=== PATIENT | female | born 1990 | race Caucasian/White ===

== ENCOUNTER 2020-03-15 08:32 | Outpatient (CLI) | payer BC ==
[2020-03-15 15:27] LABS: BASOPHILS % (AUTO) 0.8 %; EOSINOPHILS # (AUTO) 0.3 10^3/uL (0.0-0.7); EOSINOPHILS % (AUTO) 5.6 %; HGB - HEMOGLOBIN 11.7 g/dL (12.0-16.0); LYMPHOCYTES # (AUTO) 1.9 10^3/uL (1.5-3.5); MEAN CORPUSCULAR HEMOGLOBIN 28.8 pg (27.0-31.0); MEAN CORPUSCULAR HGB CONC 30.7 g/dL (32.0-36.0); MEAN CORPUSCULAR VOLUME 93.8 fL (81.0-99.0); MEAN PLATELET VOLUME 10.9 fL (7.9-10.8); MONOCYTES # (AUTO) 0.3 10^3/uL (0.0-1.0); MONOCYTES % (AUTO) 6.6 %; NEUTROPHILS # (AUTO) 2.4 10^3/uL (1.5-6.6); NEUTROPHILS % (AUTO) 48.8 %; PLT - PLATELET COUNT 288 10^3/uL (130-450); RED BLOOD COUNT 4.06 10^6/uL (4.20-5.40); RED CELL DISTRIBUTION WIDTH 13.8 % (12.0-15.0)
[2020-03-15 15:38] LABS: ALBUMIN 4.5 g/dL (3.2-5.5); ALBUMIN/GLOBULIN RATIO 1.4 (1.0-2.2); ALKALINE PHOSPHATASE 53 IU/L (42-121); ALT ALANINE AMINOTRANSFERASE < 10 IU/L (10-60); AST ASPARTATE AMINOTRANSFERASE 15 IU/L (10-42); BILIRUBIN,TOTAL 0.3 mg/dL (0.2-1.0); BUN - BLOOD UREA NITROGEN 14 mg/dL (6-20); CALCIUM 9.5 mg/dL (8.5-10.3); CARBON DIOXIDE - CO2 24 mmol/L (21-32); CHLORIDE 108 mmol/L (101-111); CHOL/HDL RATIO 3.4 (<4.4); CHOLESTEROL 199 mg/dL; CREATININE 0.9 mg/dL (0.4-1.0); GLUCOSE 90 mg/dL (70-100); HDL CHOLESTEROL 59 mg/dL; LDL CHOLESTEROL,CALCULATED 115 mg/dL; LDL/HDL RATIO 1.9 (<4.4); SODIUM 139 mmol/L (135-145); TOTAL PROTEIN 7.7 g/dL (6.7-8.2); VLDL CHOLESTEROL 25 mg/dL
[2020-03-15 16:02] LABS: THYROID STIMULATING HORMONE 7.24 uIU/mL (0.34-5.60)
[2020-03-15 16:04] LABS: FREE T3 3.49 pg/mL (2.5-3.9); FREE T4 (FREE THYROXINE) 0.7 ng/dL (0.58-1.64)
[2020-03-15 16:07] LABS: FERRITIN 12.8 ng/mL (11.0-306.8)
[2020-03-15 16:10] LABS: PROLACTIN 27.89 ng/mL
== END 2020-03-15 08:33 | disposition home or self-care (01) ==
LOC: LAB.S 08:32
PROVIDERS: ATTEND Naturopath
DX: E06.3 Autoimmune thyroiditis (principal); E55.9 Vitamin D deficiency, unspecified; G43.009 Migraine without aura, not intractable, without status migrainosus; K90.0 Celiac disease; L80 Vitiligo; N92.6 Irregular menstruation, unspecified; Z71.89 Other specified counseling; Z83.49 Family history of other endocrine, nutritional and metabolic diseases; R79.9 Abnormal finding of blood chemistry, unspecified
CPT/HCPCS: 36415; 80053; 80061; 82306; 82728; 83036; 83721; 84146; 84439; 84443; 84481; 85025; 86376; 86800

== ENCOUNTER 2020-04-13 13:50 | Emergency (ER) | payer BC ==
[2020-04-13 14:35] LABS: BASOPHILS % (AUTO) 0.6 %; EOSINOPHILS # (AUTO) 0.1 10^3/uL (0.0-0.7); EOSINOPHILS % (AUTO) 1.4 %; HGB - HEMOGLOBIN 12.8 g/dL (12.0-16.0); LYMPHOCYTES # (AUTO) 2.2 10^3/uL (1.5-3.5); LYMPHOCYTES % (AUTO) 34.1 %; MEAN CORPUSCULAR HEMOGLOBIN 29.4 pg (27.0-31.0); MEAN CORPUSCULAR HGB CONC 32.2 g/dL (32.0-36.0); MEAN CORPUSCULAR VOLUME 91.3 fL (81.0-99.0); MEAN PLATELET VOLUME 9.6 fL (7.9-10.8); MONOCYTES # (AUTO) 0.4 10^3/uL (0.0-1.0); MONOCYTES % (AUTO) 5.8 %; NEUTROPHILS # (AUTO) 3.7 10^3/uL (1.5-6.6); NEUTROPHILS % (AUTO) 57.8 %; PLT - PLATELET COUNT 338 10^3/uL (130-450); RED BLOOD COUNT 4.36 10^6/uL (4.20-5.40); WHITE BLOOD COUNT 6.3 x10^3/uL (4.8-10.8)
--- NOTE | 2020-04-13 14:42 | ED Physician Documentation ---
History of Present Illness - Stated complaint Stated Complaint: ABD TENDERNESS,FATIGUE, CONSTIPATION - Chief complaint Chief Complaint: Abd Pain - History obtained from History obtained from: Patient - Additonal information Additional information: 30-year-old female presents to the emergency department for evaluation of upper epigastric tenderness for much of the last week with some associated anorexia and nausea. She denies any vomiting. She denies black stools. She does report that sometimes she notices some blood after wiping when she has a bowel movement and thinks that she may have a rectal fissure. She wonders if she may have leg ulcer. She does have a history of celiac disease. However she states it is well managed as she has been gluten-free for nearly 7 years. No fevers, dysuria urgency or frequency. No history of renal stones. No history of gallbladders. Pain is not worse after eating but the nausea prevents her from wanting to eat Review of Systems Constitutional: denies: Fever, Chills Eyes: denies: Loss of vision Ears: reports: Reviewed and negative Nose: reports: Reviewed and negative Throat: reports: Reviewed and negative Cardiac: reports: Reviewed and negative Respiratory: reports: Reviewed and negative GI: reports: Abdominal Pain, Nausea. denies: Abdominal Swelling, Vomiting, Constipation, Diarrhea, Hematemesis, Bloody / black stool : reports: Reviewed and negative Skin: reports: Reviewed and negative Musculoskeletal: reports: Reviewed and negative PD PAST MEDICAL HISTORY - Present Medications Home Medications: Ambulatory Orders Medication Instructions Recorded Confirmed Famotidine [Pepcid] 20 mg PO BID #60 tablet 04/13/20 - Allergies Allergies/Adverse Reactions: Allergies Allergy/AdvReac Type Severity Reaction Status Date / Time No Known Drug Allergies Allergy Verified 04/13/20 14:05 PD ED PE NORMAL - General General: Alert and oriented X 3, No acute distress - HEENT HEENT: Atraumatic, PERRL, EOMI - Neck Neck: Supple, no meningeal sign, No adenopathy - Cardiac Cardiac: RRR, No murmur - Respiratory Respiratory: No respiratory distress, Clear bilaterally - Abdomen Abdomen: Normal bowel sounds, Soft, Non distended. No: Non tender (Mild epigastric tenderness to deep palpation. Negative Antonio's. Negative McBurney's. No CVA or flank tenderness) - Rectal Rectal: Other (Small rectal fissure seen at the 4 o'clock position with the patient in the left lateral recumbent position) - Back Back: No CVA TTP, No spinal TTP - Derm Derm: Normal color, No rash - Extremities Extremities: No deformity Results - Vitals Vitals: Vital Signs - 24 hr 04/13/20 04/13/20 13:59 14:57 Temperature 37.4 C Heart Rate 80 65 Respiratory 18 17 Rate Blood Pressure 122/77 138/78 H O2 Saturation 97 98 Oxygen O2 Source Room air - Labs Labs: Laboratory Tests 04/13/20 04/13/20 04/13/20 14:30 14:30 14:40 WBC 6.3 RBC 4.36 Hgb 12.8 Hct 39.8 MCV 91.3 MCH 29.4 MCHC 32.2 RDW 13.0 Plt Count 338 MPV 9.6 Neut # (Auto) 3.7 Lymph # (Auto) 2.2 Evangeline # (Auto) 0.4 Eos # (Auto) 0.1 Baso # (Auto) 0.0 Absolute Nucleated RBC 0.00 Nucleated RBC % 0.0 Sodium 138 Potassium 4.0 Chloride 102 Carbon Dioxide 25 Anion Gap 11.0 BUN 13 Creatinine 1.0 Estimated GFR (MDRD) 65 L Glucose 93 Calcium 9.6 Total Bilirubin 0.8 AST 17 ALT 11 Alkaline Phosphatase 49 Total Protein 8.1 Albumin 4.9 Globulin 3.2 Albumin/Globulin Ratio 1.5 Lipase 27 Urine Color YELLOW Urine Clarity SL. CLOUDY Urine pH 5.5 Ur Specific [place] >=1.030 H Urine Protein NEGATIVE Urine Glucose (UA) NEGATIVE Urine Ketones NEGATIVE Urine Occult Blood MODERATE H Urine Nitrite NEGATIVE Urine Bilirubin NEGATIVE Urine Urobilinogen 0.2 (NORMAL) Ur Leukocyte Esterase SMALL H Urine RBC 6-10 H Urine WBC 11-25 H Ur Squamous Epith Cells MANY Squamous H Urine Bacteria Few Urine Mucus Few Strands Ur Microscopic Review INDICATED Urine Culture Comments NOT INDICATED Urine HCG, Qual NEGATIVE PD MEDICAL DECISION MAKING - ED course Complexity details: reviewed results, considered differential, d/w patient, d/w family ED course: 30-year-old female presents the emergency department with 1 week of epigastric discomfort and nausea but no vomiting. Clinically her exam is relatively benign without any focal peritoneal tenderness. I am most suspicious that she likely has a gastritis. We discussed her routine labs which were are essentially unremarkable. Will defer CT imaging today. Will trial a 2-week course of Pepcid and advised small frequent meals with a limited amount of Zofran to help with nausea. I advised close follow-up with primary care doctor to consider H. pylori testing in the future. I do appreciate her UA results. However she has no urinary's. She did just finished her menses and admitted that she did not give a clean sample. Will defer antibiotics for urine at this time. Patient did report blood streaked stools. On exam she does have a mild rectal fissure. Will recommend a stool softener to help prevent straining with defecation. She will return to the emergency department for suddenly severe abdominal pain hematochezia fevers weight loss or if her symptoms fail to improve Departure - Departure Disposition: Home, Self Care Clinical Impression: Rectal fissure Gastritis Qualifiers: Gastritis type: unspecified gastritis Chronicity: acute Gastritis bleeding: without bleeding Qualified Code(s): K29.00 - Acute gastritis without bleeding Condition: Stable Record reviewed to determine appropriate education?: Yes Instructions: ED Gastritis Prescriptions: Famotidine [Pepcid] 20 mg PO BID #60 tablet Comments: Tracey I think the most likely cause of your nausea and upper abdominal pain is simply a gastritis or stomach inflammation. We can see this at times of increased stress but it can also be caused by a bacterial infection of the stomach called he low back to pylori. Your primary care provider or any urgent care can complete this testing. For now I would like you to take Pepcid twice a day to help reduce acid formation. I would also like you to eat small sips of food and drink fluids frequently to prevent yourself from becoming exceedingly hungry. You do have a small rectal tear or fissure. This is the cause of the blood streaking on your stools. I do recommend a stool softener [id number] to prevent straining with defecation If at any point you develop suddenly severe abdominal pain, have fevers or feel that your symptoms are not well controlled please return to the emergency department
[2020-04-13 14:45] LABS: ALBUMIN 4.9 g/dL (3.2-5.5); ALBUMIN/GLOBULIN RATIO 1.5 (1.0-2.2); BILIRUBIN,TOTAL 0.8 mg/dL (0.2-1.0); CALCIUM 9.6 mg/dL (8.5-10.3); TOTAL PROTEIN 8.1 g/dL (6.7-8.2)
[2020-04-13 14:58] VITALS: BP 138/78
[2020-04-13 15:06] LABS: BILIRUBIN,URINE NEGATIVE (NEGATIVE); GLUCOSE, URINE (UA) NEGATIVE (NEGATIVE); KETONES,URINE (UA) NEGATIVE (NEGATIVE); LEUKOCYTE ESTERASE, URINE SMALL (NEGATIVE); NITRITE,URINE NEGATIVE (NEGATIVE); OCCULT BLOOD,URINE MODERATE (NEGATIVE); PH,URINE 5.5 PH (5.0-7.5); PROTEIN,URINE NEGATIVE (NEGATIVE); UROBILINOGEN,URINE 0.2 (NORMAL) E.U./dL (NORMAL)
[2020-04-13 15:10] LABS: CLARITY,URINE SL. CLOUDY (CLEAR); HCG UR QUAL NEGATIVE
[2020-04-13 15:15] LABS: BACTERIA,URINE Few /HPF (None Seen); SQUAMOUS EPITHELIAL CELL,UR MANY Squamous (<= Few)
[2020-04-13 15:16] LABS: MUCUS,URINE Few Strands
== END 2020-04-13 15:45 | disposition home or self-care (01) ==
LOC: ED 13:50
DX: K29.00 Acute gastritis without bleeding (principal); K60.2 Anal fissure, unspecified
CPT/HCPCS: 36415; 80053; 81001; 81003; 81025; 83690; 85025; 87086; 99283; 99284

== ENCOUNTER 2020-06-02 08:46 | Outpatient (CLI) | payer OTHER ==
[2020-06-02 15:09] LABS: BASOPHILS % (AUTO) 0.8 %; EOSINOPHILS # (AUTO) 0.2 10^3/uL (0.0-0.7); HGB - HEMOGLOBIN 12.5 g/dL (12.0-16.0); LYMPHOCYTES % (AUTO) 38.6 %; MEAN CORPUSCULAR HEMOGLOBIN 29.3 pg (27.0-31.0); MEAN CORPUSCULAR HGB CONC 31.8 g/dL (32.0-36.0); MEAN PLATELET VOLUME 10.5 fL (7.9-10.8); MONOCYTES # (AUTO) 0.4 10^3/uL (0.0-1.0); MONOCYTES % (AUTO) 6.7 %; NEUTROPHILS # (AUTO) 2.6 10^3/uL (1.5-6.6); NEUTROPHILS % (AUTO) 49.7 %; PLT - PLATELET COUNT 312 10^3/uL (130-450); RED BLOOD COUNT 4.27 10^6/uL (4.20-5.40); WHITE BLOOD COUNT 5.2 x10^3/uL (4.8-10.8)
[2020-06-02 15:37] LABS: THYROID STIMULATING HORMONE 4.61 uIU/mL (0.34-5.60)
[2020-06-02 15:38] LABS: FREE T3 3.56 pg/mL (2.5-3.9); FREE T4 (FREE THYROXINE) 0.88 ng/dL (0.58-1.64)
[2020-06-02 15:40] LABS: FERRITIN 21.9 ng/mL (11.0-306.8)
== END 2020-06-02 08:47 | disposition home or self-care (01) ==
LOC: LAB.S 08:46
PROVIDERS: ATTEND Naturopath
DX: E06.3 Autoimmune thyroiditis (principal); E61.1 Iron deficiency; R79.9 Abnormal finding of blood chemistry, unspecified
CPT/HCPCS: 36415; 82728; 84439; 84443; 84481; 85025; 86376; 86800

== ENCOUNTER 2021-03-29 15:09 | Outpatient (CLI) | payer OTHER ==
[2021-03-29 19:45] LABS: BASOPHILS % (AUTO) 0.6 %; EOSINOPHILS # (AUTO) 0.2 10^3/uL (0.0-0.7); EOSINOPHILS % (AUTO) 3.1 %; HCT - HEMATOCRIT 38.2 % (37.0-47.0); HGB - HEMOGLOBIN 12.1 g/dL (12.0-16.0); LYMPHOCYTES # (AUTO) 1.9 10^3/uL (1.5-3.5); LYMPHOCYTES % (AUTO) 29.3 %; MEAN CORPUSCULAR HEMOGLOBIN 29.4 pg (27.0-31.0); MEAN CORPUSCULAR HGB CONC 31.7 g/dL (32.0-36.0); MEAN CORPUSCULAR VOLUME 92.7 fL (81.0-99.0); MEAN PLATELET VOLUME 10.2 fL (7.9-10.8); MONOCYTES # (AUTO) 0.4 10^3/uL (0.0-1.0); MONOCYTES % (AUTO) 6.6 %; NEUTROPHILS # (AUTO) 3.9 10^3/uL (1.5-6.6); NEUTROPHILS % (AUTO) 60.2 %; PLT - PLATELET COUNT 310 10^3/uL (130-450); RED BLOOD COUNT 4.12 10^6/uL (4.20-5.40); WHITE BLOOD COUNT 6.5 x10^3/uL (4.8-10.8)
[2021-03-29 20:38] LABS: THYROID STIMULATING HORMONE 3.72 uIU/mL (0.34-5.60)
[2021-03-29 20:39] LABS: FREE T3 3.63 pg/mL (2.5-3.9)
[2021-03-29 20:40] LABS: FREE T4 (FREE THYROXINE) 0.85 ng/dL (0.58-1.64)
[2021-03-29 20:44] LABS: FERRITIN 17.6 ng/mL (11.0-306.8)
== END 2021-03-29 15:10 | disposition home or self-care (01) ==
LOC: LAB.S 15:09
PROVIDERS: ATTEND Naturopath
DX: E06.3 Autoimmune thyroiditis (principal); R11.0 Nausea; K90.0 Celiac disease; E55.9 Vitamin D deficiency, unspecified; E61.1 Iron deficiency
CPT/HCPCS: 36415; 82306; 82728; 84439; 84443; 84481; 85025; 86800

== ENCOUNTER 2021-09-21 16:54 | Outpatient (CLI) | payer OTHER | END 2021-09-21 16:55 | disposition home or self-care (01) | LOC: LAB.S 16:54 | PROVIDERS: ATTEND Naturopath | DX: E61.1 Iron deficiency (principal); R53.83 Other fatigue | CPT/HCPCS: 36415; 82728 ==